=== PATIENT | female | born 1965 | race Hispanic/Latino ===

== ENCOUNTER 2019-08-23 11:07 | Day surgery (SDC) | payer MEDICARE ==
[2019-08-23 12:01] VITALS: BP 136/78
[2019-08-23] MEDS ORDERED: LIDOCAINE (1%) 10 MG/1 ML VIAL 20 ML MDV ONE ×2 (13:05→13:37)
[2019-08-23] MEDS ORDERED: BUPIVACAINE/PF (0.5%) 5 MG/1 ML 30 ML VIAL INFILTRATI ONE ×3 (13:06→13:29)
[2019-08-23] MEDS ORDERED: LIDOCAINE (1%) 10 MG/1 ML VIAL 20 ML MDV INFILTRATI ONE ×3 (13:26→13:29)
--- NOTE | 2019-08-23 13:52 | Procedure Note ---
Date of procedure: 08/23/19 Pre-op diagnosis: left hip pain Post-op diagnosis: same Procedure: Left femoral and obturator nerve block hip joint Procedure The patient was brought to the OR placed on the or table in the supine position next C-arm fluoroscopy was used to establish landmarks around the hip joint following this the left hip and groin area was prepped and draped in a sterile manner a timeout procedure was done to identify the patient and correct operative site. Using the 21-gauge spinal needle a 0 fluoroscopy the anterior lateral portion of the acetabular rim was identified the spinal needle was placed up against the anterior border next 2% Marcaine was injected in the area of the femoral nerve articular branches. Following this the spinal needle was then repositioned and placed in the area of the Ishium on C-arm this area was anesthetized with lidocaine followed by insertion of the 21-gauge spinal needle and it was advanced just lateral to the teardrop on the inferior rim of the acetabulum ball was palpated as well The 2% Marcaine was injected into this location to anesthetize the obturator nerve the spinal needle was then removed pressure was applied over the puncture wound was followed by placement of 2 Band-Aids. The patient tolerated the procedure she was then taken back to the preop holding area where she was discharged to home Anesthesia: local Surgeon: NAYE ORTIZ Estimated blood loss: minimal Pathology: none Condition: stable Disposition: observation
--- NOTE | 2019-08-23 14:14 | XRay Report ---
INTRAOPERATIVE FLUOROSCOPY: INDICATION / CLINICAL INFORMATION: LEFT HIP PAIN. TECHNIQUE: Intraoperative spot images were obtained during the procedure. FINDINGS: Intraoperative spot images were obtained during femoral nerve block documenting needle placement Fluoroscopy Time: 1.6 minutes. Fluoroscopy Images: 1. Signer Name: Pollo York MD Signed: 08/23/2019 2:10 PM Workstation Name: [id number]
== END 2019-08-23 14:01 | disposition home or self-care (01) ==
LOC: OR 11:07
PROVIDERS: ATTEND Orthopaedic Surgery
DX: M25.552 Pain in left hip (principal); G43.909 Migraine, unspecified, not intractable, without status migrainosus; E78.00 Pure hypercholesterolemia, unspecified; K21.9 Gastro-esophageal reflux disease without esophagitis; F17.210 Nicotine dependence, cigarettes, uncomplicated; M79.7 Fibromyalgia; M19.90 Unspecified osteoarthritis, unspecified site; E03.9 Hypothyroidism, unspecified; F41.9 Anxiety disorder, unspecified; Z79.899 Other long term (current) drug therapy; Z88.2 Allergy status to sulfonamides; Z91.041 Radiographic dye allergy status; Z88.8 Allergy status to other drugs, medicaments and biological substances; Z90.49 Acquired absence of other specified parts of digestive tract; Z90.710 Acquired absence of both cervix and uterus; Z98.891 History of uterine scar from previous surgery; Z87.440 Personal history of urinary (tract) infections; Z86.2 Personal history of diseases of the blood and blood-forming organs and certain disorders involving the immune mechanism
CPT/HCPCS: 64447; 64450

== ENCOUNTER 2020-07-25 10:50 | Day surgery (SDC) | payer MEDICARE ==
[~2020-07-25 10:50] MED LIST: SODIUM CHLORIDE 0.9% 1000 ML 1,000 ML IV SCH
--- NOTE | 2020-07-25 11:37 | Anesthesia Consultation ---
Anesthesia Consult and Med Hx Date of service: 07/25/20 - Airway Anesthetic Teeth Evaluation: Good ROM Head & Neck: Adequate Mental/Hyoid Distance: Adequate Mallampati Class: Class III Intubation Access Assessment: Possibly Difficult - Pulmonary Exam CTA: Yes - Cardiac Exam Cardiac Exam: RRR - Pre-Operative Health Status ASA Pre-Surgery Classification: ASA3 Proposed Anesthetic Plan: MAC - Pulmonary Hx Smoking: Yes (1/2 PPD X 40 YRS) Hx Respiratory Symptoms: No Hx Sleep Apnea: No (RYAN PRE SCREEN LOW RISK) - Cardiovascular System Hx Hypertension: Yes (recent diagnosis; takes antihypertensives prn) Hx Heart Attack/AMI: No Hx Percutaneous Transluminal Coronary Angioplasty (PTCA): No - Central Nervous System CVA: No Hx Back Pain: Yes Hx Psychiatric Problems: Yes (depression) - Gastrointestinal Hx Gastroesophageal Reflux Disease: Yes - Endocrine Hx Renal Disease: No Hx Liver Disease: No Hx Insulin Dependent Diabetes: No Hx Non-Insulin Dependent Diabetes: No Hx Hypothyroidism: Yes - Other Systems Hx Obesity: No - Additional Comments Anesthesia Medical History Comments: Hx SLE and RA on immunosuppressant therapy. Hx chronic opioid use; took usual dose this morning.
--- NOTE | 2020-07-25 11:37 | Anesthesia Day of Surgery ---
Anesthesia Day of Surgery - Day of Surgery Patient Examined: Yes Patient H&P Reviewed: Yes Patient is NPO: Yes
[2020-07-25] MEDS ORDERED: LIDOCAINE MPF (2%) 20 MG/1 ML VIAL 5 ML ONE (12:18)
[2020-07-25] MEDS ORDERED: propofoL 200 MG/20 ML VIAL IV ONE ×3 (12:35→13:09)
--- NOTE | 2020-07-25 13:37 | Procedure Note ---
Date of procedure: 07/25/20 Pre-op diagnosis: Abdominal Pain/ R/O Peptic Ulcer Disease/ R/O Colitis Post-op diagnosis: other (Mild to Moderate Erosive Esophgitis/R/O Eosinophilic Esophagitis/ Gastritis/Recto-Sigmoid Polyps (possibly Hyperplastic)/R/O Ileitis/ R/O Microscopic colitis) Procedure: EGD with Biopsy and Colonoscopy with Biopsy Anesthesia: [facility] [place] Surgeon: KRISHNA OG Estimated blood loss: minimal Pathology: list Specimen disposition: to lab Condition: stable
--- NOTE | 2020-07-25 13:39 | Operative Report ---
PROCEDURE: EGD. INDICATIONS: This is a 55-year-old white female who has a history of smoking, also takes prescription pain pills. She has lately been having some abdominal pain and discomfort. EGD was done. She had a CT scan done, which did not show any significant pathology. Because of her epigastric pain, EGD was done to make sure there was not any associated peptic ulcer disease. DESCRIPTION OF PROCEDURE: The procedure was done after getting informed consent in the GI lab with assistance of the GI lab team, which included RN, Dinorah Mullen; Luis aranda and with assistance of anesthesia. Instrument was passed through the hypopharynx into the esophagus, which showed some [id number] distal erosive esophagitis. Photodocumentation and biopsy was obtained from there as well as the midesophagus to rule out for eosinophilic esophagitis. The stomach showed gastritis, but no ulcers were noted in the straight or the retroverted view. Biopsy was done from the gastric antrum, gastric body and angular incisura to rule out for H. pylori and atrophic gastritis. The pylorus was patent. The duodenum in the first and second portion appeared normal. ASSESSMENT: Abdominal pain, no peptic ulcer disease noted; [id number] erosive esophagitis, gastritis. PLAN: To treat the patient with PPI and p.r.n. dose of Bentyl. Have the patient avoid aspirin and aspirin-related products for the next few days and follow up in the office in 1-2 weeks' time. A colonoscopy will also be done to make sure there is not any significant lower GI pathology present. [facility]# [id number] ROCKY/[place]
--- NOTE | 2020-07-25 13:46 | Operative Report ---
PROCEDURE: Colonoscopy. INDICATIONS: She had an EGD done prior to the colonoscopy, which did not show any peptic ulcer disease, but did show [id number] distal erosive esophagitis and gastritis. Biopsy was also done to rule out for eosinophilic esophagitis. DESCRIPTION OF PROCEDURE: Colonoscopy was done after getting informed consent with MAC anesthesia. Initial rectal exam was unremarkable. Instrument was passed through the rectum onto the cecum, which was identified by the ileocecal valve and the appendiceal orifice. Visualization was fair to poor. The mucosa was washed with copious amounts of water. The terminal ileum was intubated, showed normal mucosa. Biopsy was done to rule out for possible ileitis. Cecum, ascending colon, transverse colon, descending colon, and sigmoid likewise showed normal mucosa. Random biopsies were done to rule out for possible microscopic colitis. There were a few small polyps noted in the rectosigmoid area. This was removed by cold biopsy and the rectum showed minor internal hemorrhoid on the retroverted view. ASSESSMENT: Abdominal pain, rule out microscopic colitis, rule out ileitis, few rectosigmoid polyps such as hyperplastic polyps noted. Minor internal hemorrhoid. PLAN: To have the patient avoid aspirin and aspirin-related products for the next 4-5 days. Otherwise, resume home medication. Advised the patient strongly to refrain from tobacco use. Treat the patient with PPI and p.r.n. dose of Bentyl. Also, encouraged the patient to take probiotics, have the patient follow up in the office in 1-2 weeks' time. Further treatment adjustment will be according to the biopsy findings. [facility]# [id number] R[place]Y/SALE[place]
[2020-07-25 13:48] VITALS: BP 114/74
--- NOTE | 2020-07-25 13:56 | Post Anesthesia Evaluation ---
- Post Anesthesia Evaluation Patient Participated: Yes Airway Patent: Yes Stable Respiratory Function: Yes Nausea/Vomiting: No Temp > 96.8F: Yes Pain Manageable: Yes Adequeate Hydration: Yes Anesthesia Complications: No
== END 2020-07-25 10:51 | disposition home or self-care (01) ==
LOC: GIO 10:50
DX: R10.9 Unspecified abdominal pain (principal); K29.70 Gastritis, unspecified, without bleeding; K64.8 Other hemorrhoids; K63.89 Other specified diseases of intestine; F17.210 Nicotine dependence, cigarettes, uncomplicated; G43.909 Migraine, unspecified, not intractable, without status migrainosus; E78.00 Pure hypercholesterolemia, unspecified; I10 Essential (primary) hypertension; F41.9 Anxiety disorder, unspecified; K21.00 Gastro-esophageal reflux disease with esophagitis, without bleeding; M79.10 Myalgia, unspecified site; M19.90 Unspecified osteoarthritis, unspecified site; E03.9 Hypothyroidism, unspecified; Z88.2 Allergy status to sulfonamides; Z91.041 Radiographic dye allergy status; Z88.8 Allergy status to other drugs, medicaments and biological substances; Z79.899 Other long term (current) drug therapy; Z90.49 Acquired absence of other specified parts of digestive tract; Z90.710 Acquired absence of both cervix and uterus; Z87.440 Personal history of urinary (tract) infections; Z98.891 History of uterine scar from previous surgery; Z98.890 Other specified postprocedural states; Z86.2 Personal history of diseases of the blood and blood-forming organs and certain disorders involving the immune mechanism
CPT/HCPCS: 43239; 45380; 81025; 88305; 88342; J2704; J7030